=== PATIENT | female | born 2000 | race Caucasian/White ===

== ENCOUNTER 2018-02-24 16:04 | Emergency (ER) | payer SELFPAY ==
--- NOTE | 2018-02-24 16:51 | ED ---
HPI Chest Pain - HPI Summary HPI Summary: Pt is a 17 y/o female who presents to the ED c/o CP. 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 Pt reports the pain worsens with exercise and deep breathing. The CP is located underneath her left rib, and is not reproduced with palpation. Pt also c/o difficulty breathing, palpitations, breast tenderness, lightheadedness, and being more aware of her breathing. She denies any cough or congestion. LNMP 4 weeks ago; she was supposed to get her period this week but never did, but she still has the normal symptoms that come with it. Pt notes she occasionally gets similar CP but it only lasts for about 10 minutes. FHx heart disease. Father has a pacemaker and valve replacement. Pt has anxiety and depression, and had a panic attack yesterday, but did not note any CP at the time. She smoked marijuana 4 days ago. - History of Current Complaint Chief Complaint: EDChestPainROMI Time Seen by Provider: 02/24/18 16:35 Hx Obtained From: Patient Onset/Duration: Started Hours Ago - 4:00 Today, Still Present Timing: Constant Current Severity: Moderate Pain Intensity: 4 Pain Scale Used: 0-10 Numeric Chest Pain Location: Left Lateral Chest Pain Radiates: No Aggravating Factor(s): Movement, Deep Breaths Alleviating Factor(s): Nothing Associated Signs and Symptoms: Positive: Lightheadedness, Palpitations - Allergy/Home Medications Allergies/Adverse Reactions: Allergies Allergy/AdvReac Type Severity Reaction Status Date / Time No Known Allergies Allergy Verified 02/24/18 16:15 PMH/Surg Hx/FS Hx/Imm Hx Endocrine/Hematology History: Denies: Hx Thyroid Disease GI History: Reports: Hx Irritable Bowel Psychiatric History: Reports: Hx Anxiety, Hx Depression Infectious Disease History: No Infectious Disease History: Denies: Traveled Outside the [place] in Last 30 Days - Family History Known Family History: Positive: Cardiac Disease, Other - Double brain aneurysm - Social History Alcohol Use: Rare Hx Substance Use: Yes Substance Use Type: Reports: Marijuana Substance Use Comment - Amount & Last Used: Occasionally Hx Tobacco Use: No Smoking Status (MU): Never Smoked Tobacco Review of Systems Negative: Nasal Discharge - Congestion Positive: Palpitations, Chest Pain Positive: Other - Difficulty breathing. Negative: Cough Positive: other - Breast tenderness Neurological: Other - Lightheadedness Positive: Anxious - Panic attack All Other Systems Reviewed And Are Negative: Yes Physical Exam - Summary Physical Exam Summary: Appearance: Well appearing, no pain distress Skin: warm, dry, reflects adequate perfusion Head/face: normal Eyes: EOMI, EILEEN ENT: mucous membranes moist Neck: supple, non-tender Respiratory: CTA, breath sounds present Cardiovascular: RRR, pulses symmetrical, no murmurs or gallops, no LE edema Abdomen: non-tender, soft Bowel Sounds: present Musculoskeletal: normal, strength/ROM intact Neuro: normal, sensory motor intact, A&Ox3 Triage Information Reviewed: Yes Vital Signs On Initial Exam: Initial Vitals Temp Pulse Resp BP Pulse Ox 98.4 F 76 20 127/67 98 02/24/18 16:12 02/24/18 16:12 02/24/18 16:12 02/24/18 16:12 02/24/18 16:12 Vital Signs Reviewed: Yes Diagnostics - Vital Signs Vital Signs Temp Pulse Resp BP Pulse Ox 02/24/18 16:12 98.4 F 76 20 127/67 98 - Laboratory Lab Statement: Any lab studies that have been ordered have been reviewed, and results considered in the medical decision making process. - Radiology CXR Radiology Interpretation Completed By: Radiologist - No evidence for acute intrathoracic disease. ED physician reviewed radiology report. - EKG 17:16 Cardiac Rate: NL - 61 bpm EKG Rhythm: Sinus Rhythm ST Segment: Normal Summary of EKG Findings: Nl axis, nl intervals Re-Evaluation - Re-Evaluation First Eval Re-Evaluation Time: 18:05 Change: Worse Comment: Pt now has right-sided sharp CP. She will be walked around the ED. Chest Pain Course/Dx - Course Course Of Treatment: PERC applies. HR in low 60s. CXR neg. Hx of anxiety. ECG normal. Walked briskly with sats 99-100. 1 tab ativan prior to discharge. Will f /u closely with [facility]. - Chest Pain Differential Diagnosis/HQI/PQRI: Acute OR, Chest Wall, GI Disease, Lower Respiratory Infection, Pulmonary Edema, Pulmonary Embolism - Diagnoses Provider Diagnoses: Anxiety disorder, Atypical chest pain Discharge - Sign-Out/Discharge Documenting (check all that apply): Patient Departure - Discharge - Discharge Plan Condition: Improved Disposition: HOME Prescriptions: Famotidine TAB* [Pepcid 20 MG TAB*] 20 mg PO BID #20 tab Patient Education Materials: Chest Pain (ED), Anxiety (ED) Referrals: [facility] [, APPLICATION, OTHER] - Additional Instructions: Ibuprofen as needed. Call [facility] [place] first thing in the morning to schedule prompt follow-up. Review with them and your therapist how your anxiety has been doing. Return if worse, difficulty breathing, new symptoms or other concerns - Billing Disposition and Condition Condition: IMPROVED Disposition: Home - Attestation Statements Document Initiated by Scribe: Yes Documenting Scribe: Flaquita Jorge Provider For Whom Scribe is Documenting (Include Credential): Eddie Ambrose MD Scribe Attestation: Flaquita Weeks, scribed for Eddie Ambrose MD on 02/24/18 at 1825. Scribe Documentation Reviewed: Yes Provider Attestation: The documentation as recorded by the scribeFlaquita accurately reflects the service I personally performed and the decisions made by me, Eddie Ambrose MD
[2018-02-24] MEDS ORDERED: Famotidine TAB* 20 MG PO ONE (17:00)
[2018-02-24] MEDS ORDERED: Ketorolac INJ* 60 MG/2 ML VIAL IM ONE (17:00)
--- NOTE | 2018-02-24 17:31 | RAD ---
INDICATION: Chest and upper abdominal pain started yesterday. COMPARISON: No relevant prior exams available on the [facility] for comparison. TECHNIQUE: Dual energy PA and routine lateral views of the chest were obtained. REPORT: Clear lungs and pleural spaces. Negative for pneumothorax. The heart, pulmonary vasculature, and mediastinal contours are unremarkable. Negative for free air beneath the diaphragm. Unremarkable osseous structures and soft tissue contours. IMPRESSION: #. No evidence for acute intrathoracic disease.
[2018-02-24] MEDS ORDERED: LORazepam TAB(*) 1 MG PO ONE (18:15)
[2018-02-24 18:24] VITALS: BP 104/59
== END 2018-02-24 18:23 | disposition home or self-care (01) ==
LOC: ED 16:04
DX: F41.9 Anxiety disorder, unspecified (principal); R07.89 Other chest pain
CPT/HCPCS: 71046; 93005; 96372; 99282; A9270-GY; J1885